=== PATIENT | female | born 1985 | race Caucasian/White ===

== ENCOUNTER 2017-04-17 10:17 | Emergency (ER) | payer OTHER, MEDICAID ==
[~2017-04-17] VITALS: Ht 175.3 cm; Wt 99.8 kg
[~2017-04-17 10:17] MED LIST: ADVAIR 250-501 EACH IH; ADVIL200 M2 PO; ALBUTEROL INHAL17 GM IH; AMBIEN; AMBIEN 10 MG TA10 MG; ANIMAL CHEWS1 EAC1 PO; AUGMENTIN 875875 M1 PO; AUGMENTIN 875875 MG PO; AURALGAN EAR DR14 ML OT; AVELOX; AVELOX 400 MG400 MG; BUPROPION PO; CIPRO; CIPRO250 M1 PO; CIPROFLOXACIN500 M1 PO; CIPROFLOXACIN500 M3 PO; CLONAZEPAM 0.50.5 M1; CLONAZEPAM 0.50.5 M1 PO; CLONAZEPAM 1 MG1 M1 PO; COLACE100 MG PO; FLEXERIL; FLEXERIL PO; FLONASE 0.05%50 MCG NS; HYDROCODONE-AP1 EAC6 PO; IBUPROFEN 800800 M1; IBUPROFEN 800800 M1 PO; IRON18 M1 PO; LEVAQUIN 500 M500 M1 PO; LEVSIN0.125 MG PO; LISINOPRIL-HCT1 EACH; LISINOPRIL10 MG PO; LORATIDINE 10 M10 M1 PO; LORCET PLUS 7.51 TA1 PO; MACROBID 100 M100 M1 PO; MEDROL DOSPAK21 TA1 PO; MEDROLDOSEPACK PO; METHOCARBAMOL500 M1; MINIPRESS5 MG PO; MOBIC7.5 MG PO; NORCO 5-325 TA1 EACH PO; PAXIL10 MG PO; PAXIL30 MG PO; PERCOCET; PERCOCET 10-321 EACH; PERCOCET 5-3251 EACH PO; PHENERGAN 25 MG25 M1; PHENERGAN 25 MG25 M1 PO; PREDNISONE 10 M10 MG; PRISTIQ100 MG PO; PROPRANOLOL 20M20 M1 PO; PROPRANOLOL 8080 M1; PROVERA10 MG PO; PYRIDIUM200 MG PO; ROBAXIN 750 MG750 M1 PO; SEROQUEL 50 MG50 MG; TAMSULOSIN HCL0.4 M1; TESSALON200 MG PO; TOPROL XL100 MG PO; TRIAMTERENE-HC1 EAC1 PO; ULTRAM 50MG TAB50 MG PO; URELLE PO; VENLAFAXIN75 MG/1 T2 PO; VICODIN; WELLBUTRIN 100100 MG PO; WELLBUTRIN XL300 MG PO; XANAX PO; ZOFRAN ODT4 MG PO; ZPAK PO
[2017-04-17 10:20] VITALS: BP 141/73
[2017-04-17] MEDS ORDERED: MINIPRESS2 MG PO (10:22)
--- NOTE | 2017-04-17 15:10 | EKG ---
[place] [address] ELECTROCARDIOGRAM REPORT Name: YUNG VARMA Room: [facility]#: [id number] Admission: 04/17/17 Attend Phys: Discharge: 04/17/17 Date of : 81 Report #: [id number] THIS REPORT FOR: //name// [facility] ED Test Date: 2017-04-17 Test Time: 10:23:00 Pat Name: YUNG VARMA Department: Room: Gender: F Guest Services Representative: Eri PIEDRA : 1985 Requested By: Mert Hernandez Order Number: [id number] MD: Carlos Hogan Measurements Intervals [place] Rate: 89 P: 17 ND: 138 QRS: 4 QRSD: 102 T: 17 QT: 356 QTc: 434 Interpretive Statements Sinus rhythm Low voltage, precordial leads Baseline wander in lead(s) I,V1,V3 Compared to ECG 06/17/2013 09:42:09 Low QRS voltage now present Electronically Signed On 04-17-2017 15:10:42 SEBD TEACHER by Carlos Hogan [email or web address] <ELECTRONICALLY SIGNED> By: Carlos Hogan MD, [facility] 04/17/17 1510 1023 1023 Carlos Hogan MD, [facility] WITH [facility] /EPI
== END 2017-04-17 11:00 | disposition home or self-care (01) ==
LOC: M.ERS 10:17
DX: R07.89 Other chest pain (principal); E28.2 Polycystic ovarian syndrome; Z87.442 Personal history of urinary calculi; Z90.49 Acquired absence of other specified parts of digestive tract; G43.909 Migraine, unspecified, not intractable, without status migrainosus; F43.10 Post-traumatic stress disorder, unspecified; F32.9 Major depressive disorder, single episode, unspecified; F41.9 Anxiety disorder, unspecified; Z90.710 Acquired absence of both cervix and uterus; Z88.5 Allergy status to narcotic agent; Z88.1 Allergy status to other antibiotic agents

== ENCOUNTER 2018-12-16 15:01 | Emergency (ER) | payer OTHER, MEDICAID ==
[~2018-12-16] VITALS: Ht 175.3 cm; Wt 99.8 kg
[~2018-12-16 15:01] MED LIST changes: +MINIPRESS2 MG PO; +PAXIL40 MG PO
[2018-12-16] MEDS ORDERED: WELLBUTRIN XL300 MG PO (15:36)
[2018-12-16] MEDS ORDERED: MELATONIN5 M1 PO (15:36)
[2018-12-16 17:02] LABS: URINE BILIRUBIN NEGATIVE (Negative); URINE BLOOD 1+ (Negative); URINE CLARITY CLEAR; URINE COLOR YELLOW; URINE GLUCOSE-RANDOM NEGATIVE (Negative); URINE KETONES NEGATIVE (Negative); URINE LEUKOCYTES-REFLEX NEGATIVE (Negative); URINE NITRITE-REFLEX NEGATIVE (Negative); URINE PROTEIN NEGATIVE (Negative); URINE SPECIFIC GRAVITY 1.015 (1.005-1.030); URINE UROBILINOGEN 0.2 E.U./dl (0.2-1.0)
[2018-12-16 17:22] LABS: MUCUS None Seen strn/LPF (None Seen); SQUAMOUS >10 Many /LPF (0-3)
[2018-12-16 17:23] LABS: CASTS None Seen /LPF (None Seen); CRYSTALS None Seen /LPF (None Seen); URINE RBC 0-2 Rare /HPF (0-2); URINE WBC-REFLEX 0-5 Rare /HPF (0-5)
[2018-12-16 17:24] LABS: BACTERIA-REFLEX 1-9 Few /HPF (None Seen)
[2018-12-16 17:26] LABS: ABSOLUTE BASOPHILS 0.1 thou/uL (0.0-0.2); ABSOLUTE EOSINOPHILS 0.3 thou/uL (0.0-0.7); ABSOLUTE LYMPHOCYTES 2.5 thou/uL (0.8-5.3); ABSOLUTE MONOCYTES 0.8 thou/uL (0.0-1.2); BASOPHILS 1.2 %; EOSINOPHILS 2.5 %; HEMATOCRIT 37.6 % (37.0-47.0); HEMOGLOBIN 13.3 gm/dL (12.0-15.0); LYMPHOCYTES 22.9 %; MCH 31.2 pg (26.0-34.0); MCHC 35.4 g/dL (28.0-37.0); MCV 87.9 fL (80.0-100.0); MONOCYTES 7.6 %; MPV 7.3 fl. (7.2-11.1); NUCLEATED RBCS 0 /100WBC; PLATELET COUNT* 301 thou/uL (150-400); POLYS 65.8 %; RBC 4.27 mil/uL (4.20-5.00); WBC 10.7 thou/uL (4.0-11.0)
[2018-12-16 17:37] LABS: CALCIUM 8.8 mg/dL (8.5-10.1); CREATININE 1.1 mg/dL (0.6-1.3)
[2018-12-16 17:41] LABS: ALBUMIN 3.7 g/dL (3.4-5.0); TOTAL BILIRUBIN 0.3 mg/dL (<0.1-1.0); TOTAL PROTEIN 6.7 g/dL (6.4-8.2)
[2018-12-16] MEDS ORDERED: PHENERGAN 25 MG25 M1 PO (18:39)
[2018-12-16] MEDS ORDERED: FLOMAX0.4 MG PO (18:39)
[2018-12-16] MEDS ORDERED: PERCOCET PO (18:39)
[2018-12-16 19:00] VITALS: BP 113/49
== END 2018-12-16 19:00 ==
LOC: M.ERS 15:01
PROVIDERS: Nurse Practitioner
DX: N20.0 Calculus of kidney (principal); E28.2 Polycystic ovarian syndrome; G43.909 Migraine, unspecified, not intractable, without status migrainosus; F41.9 Anxiety disorder, unspecified; F32.9 Major depressive disorder, single episode, unspecified; Z98.51 Tubal ligation status; Z87.442 Personal history of urinary calculi; Z90.49 Acquired absence of other specified parts of digestive tract; Z90.710 Acquired absence of both cervix and uterus; Z88.1 Allergy status to other antibiotic agents; Z88.6 Allergy status to analgesic agent

== ENCOUNTER 2021-02-15 18:06 | Emergency (ER) | payer OTHER, MEDICAID ==
[~2021-02-15] VITALS: Ht 175.3 cm; Wt 102.1 kg
[~2021-02-15 18:06] MED LIST changes: +FLOMAX0.4 MG PO; +MELATONIN5 M1 PO; +PERCOCET PO
[2021-02-15 18:22] VITALS: BP 122/82
[2021-02-15] MEDS ORDERED: PREDNISONE 20 M20 M1 PO ×2 (18:49→19:07)
[2021-02-15] MEDS ORDERED: AMOXICILLIN 50500 MG PO ×2 (18:49→19:07)
[2021-02-15] MEDS ORDERED: PROMETH-CODEIN 65 ML PO ×2 (18:49→19:07)
== END 2021-02-15 18:55 | disposition home or self-care (01) ==
LOC: M.ERS 18:06
DX: H66.91 Otitis media, unspecified, right ear (principal); G43.909 Migraine, unspecified, not intractable, without status migrainosus; Z88.5 Allergy status to narcotic agent; Z88.1 Allergy status to other antibiotic agents; Z79.899 Other long term (current) drug therapy; Z87.442 Personal history of urinary calculi; Z98.51 Tubal ligation status

== ENCOUNTER 2021-04-21 13:27 | Emergency (ER) | payer OTHER, MEDICAID ==
[~2021-04-21] VITALS: Ht 175.3 cm; Wt 99.8 kg
[~2021-04-21 13:27] MED LIST changes: +AMOXICILLIN 50500 MG PO; +PREDNISONE 20 M20 M1 PO; +PROMETH-CODEIN 65 ML PO
[2021-04-21 14:20] LABS: ABSOLUTE BASOPHILS 0.1 thou/uL (0.0-0.2); ABSOLUTE EOSINOPHILS 0.1 thou/uL (0.0-0.7); ABSOLUTE LYMPHOCYTES 1.9 thou/uL (0.8-5.3); ABSOLUTE MONOCYTES 0.3 thou/uL (0.0-1.2); ABSOLUTE NEUTROPHILS 4.3 thou/uL (1.6-8.1); BASOPHILS 1.7 %; EOSINOPHILS 1.7 %; HEMATOCRIT 39.4 % (37.0-47.0); HEMOGLOBIN 13.8 gm/dL (12.0-15.0); LYMPHOCYTES 28.4 %; MCHC 35.2 g/dL (28.0-37.0); MCV 85.3 fL (80.0-100.0); MONOCYTES 4.8 %; MPV 6.6 fl. (7.2-11.1); NUCLEATED RBCS 0 /100WBC; PLATELET COUNT* 293 thou/uL (150-400); POLYS 63.4 %; RBC 4.62 mil/uL (4.20-5.00); RDW-CV 12.6 % (10.5-14.5); WBC 6.8 thou/uL (4.0-11.0)
[2021-04-21 14:36] LABS: CALCIUM 9.4 mg/dL (8.5-10.1); POTASSIUM 3.8 mmol/L (3.5-5.1)
[2021-04-21 14:40] LABS: TOTAL BILIRUBIN 0.4 mg/dL (<0.1-1.0); TOTAL PROTEIN 6.8 g/dL (6.4-8.2)
[2021-04-21] MEDS ORDERED: NORCO5 PO (15:58)
[2021-04-21 16:50] VITALS: BP 131/71
--- NOTE | 2021-04-22 11:13 | EKG ---
[place] [address] ELECTROCARDIOGRAM REPORT Name: YUNG VARMA Room: [facility]#: [id number] Admission: 04/21/21 Attend Phys: Discharge: 04/21/21 Date of : 81 Date of Service: 04/21/21 1333 Report #: [id number] THIS REPORT FOR: //name// [facility] ED Test Date: 2021-04-21 Test Time: 13:33:17 Pat Name: YUNG VARMA Department: Room: Gender: Control Officer: : 1985 Requested By: Manfred Carias Order Number: [id number] : James Najera Measurements Intervals [place] Rate: 126 P: 34 SD: 130 QRS: 66 QRSD: 96 T: 26 QT: 299 QTc: 433 Interpretive Statements Sinus tachycardia Compared to ECG 04/17/2017 10:23:00 Sinus rate has increased Electronically Signed On 04-22-2021 11:12:53 TUTORING MANAGER by James Najera [email or web address] <ELECTRONICALLY SIGNED> By: James Najera MD, [facility] 04/22/21 1112 1333 1333 James Najera MD, [facility] /EPI
[2021-04-22] MEDS ORDERED: DEXAMETHASONE 44 M1 PO (12:05)
[2021-04-22] MEDS ORDERED: ZPAK PO (12:05)
[2021-04-22] MEDS ORDERED: PROMETH-CODEIN 65 ML PO (12:05)
[2021-04-22] MEDS ORDERED: VENTOLIN HFA 1818 GM INH (12:05)
== END 2021-04-21 16:50 | disposition home or self-care (01) ==
LOC: M.ERS 13:27
PROVIDERS: Emergency Medicine
DX: U07.1 COVID-19 (principal); J12.82 Pneumonia due to coronavirus disease 2019; R07.89 Other chest pain; G43.909 Migraine, unspecified, not intractable, without status migrainosus; Z98.51 Tubal ligation status; Z90.49 Acquired absence of other specified parts of digestive tract; Z90.89 Acquired absence of other organs; Z90.710 Acquired absence of both cervix and uterus; Z79.899 Other long term (current) drug therapy; Z88.1 Allergy status to other antibiotic agents

== ENCOUNTER → 2021-04-22 | Emergency (ER) | payer OTHER, MEDICAID ==
[~2021-04-22] VITALS: Ht 177.8 cm; Wt 102.1 kg
[~2021-04-22] MED LIST changes: +DEXAMETHASONE 44 M1 PO; +NORCO5 PO; +VENTOLIN HFA 1818 GM INH
[2021-04-22 12:15] VITALS: BP 149/92
--- NOTE | 2021-04-23 09:35 | EKG ---
[place] [address] ELECTROCARDIOGRAM REPORT Name: YUNG VARMA Room: [facility]#: [id number] Admission: 04/22/21 Attend Phys: Discharge: Date of : 81 Date of Service: 04/22/21 1155 Report #: [id number] THIS REPORT FOR: //name// [facility] ED Test Date: 2021-04-22 Test Time: 11:55:47 Pat Name: YUNG VARMA Department: Room: Gender: Spear Fisher: : 1985 Requested By: Mert Hernandez Order Number: [id number] Yahaira MD: James Najera Measurements Intervals [place] Rate: 93 P: 18 NV: 136 QRS: 4 QRSD: 90 T: 41 QT: 342 QTc: 426 Interpretive Statements Sinus rhythm Compared to ECG 04/21/2021 13:33:17 Sinus tachycardia no longer present Electronically Signed On 04-23-2021 9:34:53 PIT OPERATOR by James Najera [email or web address] <ELECTRONICALLY SIGNED> By: James Najera MD, [facility] 04/23/21 0934 1155 1155 James Najera MD, [facility] /EPI
== END ==
LOC: M.ERS 11:49
DX: J40 Bronchitis, not specified as acute or chronic (principal); G43.909 Migraine, unspecified, not intractable, without status migrainosus; F32.9 Major depressive disorder, single episode, unspecified; F41.9 Anxiety disorder, unspecified; Z90.710 Acquired absence of both cervix and uterus; Z90.49 Acquired absence of other specified parts of digestive tract; Z98.51 Tubal ligation status; Z90.89 Acquired absence of other organs; Z79.899 Other long term (current) drug therapy; Z88.8 Allergy status to other drugs, medicaments and biological substances